=== PATIENT | female | born 1970 | race Hispanic/Latino ===

== ENCOUNTER → 2025-01-20 | Day surgery (SDC) | payer BC ==
[~2025-01-20] MED LIST: GLUCAGON FOR INJ 1 MG VIAL ONE; LACTATED RINGER'S 1,000 ML ONE; LIDOCAINE HCL 2% LOCAL INJ 5 ML SDV VIAL INJ ONE; METFORMIN HCL500 MG PO; MIDAZOLAM HCL 2 MG/2 ML VIAL ONE; PROPOFOL IV EMULSION 10 MG/ML 20 ML VIAL ONE
[2025-01-20 12:55] VITALS: BP 100/71; PULSE 68; RESP 16; TEMP 97.5; O2SAT 99
== END | disposition home or self-care (01) ==
LOC: OR 10:45
PROVIDERS: ATTEND Internal Medicine Gastroenterology
DX: Z12.11 Encounter for screening for malignant neoplasm of colon (principal); D12.0 Benign neoplasm of cecum; D12.2 Benign neoplasm of ascending colon; K62.5 Hemorrhage of anus and rectum; K64.8 Other hemorrhoids; K64.4 Residual hemorrhoidal skin tags; E11.9 Type 2 diabetes mellitus without complications; Z88.0 Allergy status to penicillin; Z01.810 Encounter for preprocedural cardiovascular examination; Z79.84 Long term (current) use of oral hypoglycemic drugs; Z68.33 Body mass index [BMI] 33.0-33.9, adult; Z85.42 Personal history of malignant neoplasm of other parts of uterus; Z92.21 Personal history of antineoplastic chemotherapy
CPT/HCPCS: 45384; 93005; J1610; J2003; J2250; J2704; J7121; 45378